=== PATIENT | male | born 1975 | race Caucasian/White ===

== ENCOUNTER 2022-06-01 08:05 | Emergency (ER) | payer OTHER ==
[~2022-06-01] VITALS: Ht 172.7 cm; Wt 86.2 kg
[2022-06-01] MEDS ORDERED: HYDROCODON-ACE1 EA10 PO (09:17)
[2022-06-01] MEDS ORDERED: MEDROL4 MG PO (09:17)
[2022-06-01] MEDS ORDERED: CYCLOBENZAPRINE10 MG PO (09:17)
[2022-06-01] MEDS ORDERED: NAPROSYN500 MG PO (09:17)
== END 2022-06-01 09:35 | disposition home or self-care (01) ==
LOC: ED 08:05
DX: M54.16 Radiculopathy, lumbar region (principal); Z88.0 Allergy status to penicillin; I10 Essential (primary) hypertension
CPT/HCPCS: 72131; 96372; 99283-25; A9270; J1885

== ENCOUNTER 2025-02-05 10:20 | Day surgery (SDC) | payer OTHER ==
[~2025-02-05] VITALS: Ht 172.7 cm; Wt 80.0 kg
[~2025-02-05 10:20] MED LIST: BUPROPION XL300 MG PO; CYCLOBENZAPRINE10 MG PO; GABAPENTIN300 MG PO; HYDROCODON-ACE1 EA10 PO; IBLOOD GLUCOSE TEST STRIP 1 EA TEST VI PRN; LACTATED RINGER'S 1,000 ML IV SCH; LIDOCAINE HCL 1% 5 ML SDV INJ ONE; LIDOCAINE HCL 2% 5 ML SDV ONE; LIPITOR10 MG PO; LOSARTAN-HCTZ1 EAC1 PO; MEDROL4 MG PO; NAPROSYN500 MG PO; NORVASC10 MG PO
[2025-02-05 10:27] VITALS: BP 160/98
[2025-02-05 11:10] LABS: GLOMERULAR FILTRATION RATE,EST 108.0 mL/min (>60); UREA NITROGEN 8.0 mg/dL (7-18)
--- NOTE | 2025-02-05 11:32 | NUR ---
1125 PT UPDATED ABOUT WAIT TIME DUE TO EMERGENCY SURGERY BEING ADDED ON. PT UNDERSTANDING AT THIS TIME. PT HAS SUPPORT PERSON IN ROOM AT BEDSIDE. PT SITTING IN BED WATCHING TV AND HAS CALL LIGHT WITHIN REACH.
[2025-02-05] MEDS ORDERED: GLUCAGON,HUMAN RECOMBINANT 1 MG/ML VIAL ONE (13:45)
--- NOTE | 2025-02-05 14:15 | NUR ---
02/05/25 1415 Amira Valdez 1410-PATIENT ARRIVED TO PACU ON 2L NC RR EVEN 98% PATIENT NONAROUSABLE SR HR 70'S. IVF SALINE LOCKED. ABDOMEN SOFT.
[2025-02-05 14:44] VITALS: BP 133/94
--- NOTE | 2025-02-05 15:07 | OR ---
[facility] [address] [place], [place] [address] Signed DATE OF OPERATION: 02/05/2025 SURGEON: Irene Galvez DO PREOPERATIVE DIAGNOSIS: Colon cancer screening. POSTOPERATIVE DIAGNOSES: 1. Colon cancer screening with colon polyps at 15 and 35 cm. 2. Sigmoid diverticulosis. PROCEDURE PERFORMED: Colonoscopy with cold forceps biopsy of the polyps at 15 and 35 cm. ANESTHESIA: IV sedation. ESTIMATED BLOOD LOSS: None. DRAINS: None. COMPLICATIONS: None. DESCRIPTION OF PROCEDURE: The patient was brought to the GI lab, placed in the supine position. After induction of IV sedation, the patient was then placed in left lateral position, padded to the satisfaction of anesthesia. The Olympus video colonoscope was then introduced into the rectum and while insufflating and under direct visualization, the scope was advanced through the rectosigmoid, sigmoid colon, descending colon, transverse colon, ascending colon and to the cecum. The colon was then insufflated and of mucosal surface was carried out. The ascending colon and cecum had no intrinsic or extrinsic masses. Scope was brought back into the transverse colon. No intrinsic or extrinsic masses were noted. Scope was brought back past the hepatic flexure to the descending colon. No intrinsic or extrinsic masses were appreciated. The scope was then brought back into the sigmoid colon, some profound sigmoid diverticulosis was noted but no evidence of diverticulitis. At 35 cm, a flat broad-based polyp was identified. Multiple biopsies were taken with cold forceps passed off the field. The scope was then brought Electronically Signed By: IRENE GALVEZ DO 02/05/25 1507 PATIENT NAME: CASSIDY BENAVIDES OPERATIVE REPORT DATE OF : 75 REPORT #: [id number] PHYSICIAN: IRENE GALVEZ DO PCP: RUMA BLACKWOOD DO REPORT IS CONFIDENTIAL AND NOT TO BE RELEASED WITHOUT AUTHORIZATION [facility] [address] [place], [place] [address] Signed back to approximately 15 cm and a similar polyp was noted. Multiple biopsies were taken with cold forceps, passed off the field for review. The remainder of the sigmoid and rectosigmoid were unremarkable. Scope was withdrawn. The patient tolerated the procedure well and taken to recovery in satisfactory condition. DO ADRIEL Matson/[facility] /[id number] Copies: ~ Electronically Signed By: IRENE GALVEZ DO 02/05/25 1507 PATIENT NAME: CASSIDY BENAVIDES OPERATIVE REPORT DATE OF : 75 REPORT #: [id number] PHYSICIAN: IRENE GALVEZ DO PCP: RUMA BLACKWOOD DO REPORT IS CONFIDENTIAL AND NOT TO BE RELEASED WITHOUT AUTHORIZATION
--- NOTE | 2025-02-07 22:47 | PATH ---
[facility] [address] [place], [place] [address] Signed SPECIMEN(S): A COLON POLYP AT 35 CM SPECIMEN(S): B COLON POLYP AT 15 CM SPECIMEN SOURCE: A. COLON POLYP AT 35 CM B. COLON POLYP AT 15 CM CLINICAL HISTORY: Pre-op:Colon Screening, postop-polyps x 2, diverticulosis A/B) polyp FINAL PATHOLOGIC DIAGNOSIS: A. Colon polyp at 35 cm: - Hyperplastic polyp. B. Colon polyp at 15 cm: - Hyperplastic polyp. JVR MICROSCOPIC EXAMINATION: Histologic sections of all submitted blocks are examined by light microscopy. These findings, together with the gross examination, support the pathologic diagnosis. GROSS DESCRIPTION: A. The specimen, labeled and designated "Kellas, colon polyp at 35 cm," is received in formalin and consists of one cameron soft tissue fragment, 0.3 cm. Entirely submitted in (A1). B. The specimen, labeled and designated "Kellas, colon polyp at 15 cm," is received in formalin and consists of one cameron soft tissue fragment, 0.3 cm. Entirely submitted in (B1). AB (under the direct supervision of a pathologist) The Gross Description was prepared using a voice recognition system. The report was reviewed for accuracy; however, sound-alike word errors, addition and/or deletions may occur. If there is any question about this report, please contact Client Services. ADDITIONAL NOTES: Immunohistochemical and/or in situ hybridization studies if performed in this case included appropriate positive controls that reacted as expected. This test was developed and its performance characteristics determined by [facility]. It has not been cleared or PATIENT NAME: CASSIDY BENAVIDES PATHOLOGY DATE OF : 75 REPORT #: [id number] PHYSICIAN: MARLON PENA PCP: RUMA BLACKWOOD DO REPORT IS CONFIDENTIAL AND NOT TO BE RELEASED WITHOUT AUTHORIZATION [facility] [address] [facility] [place] [address] Signed approved by the U.S. Food and Drug Administration. The FDA has determined that such clearance or approval is not necessary. This test is used for clinical purposes. It should not be regarded as investigational or for research. [facility] is certified under the Clinical Laboratory Improvement Amendments of 1988 (CLIA) as qualified to perform high complexity clinical laboratory testing. PERFORMING LABORATORY: Technical component was performed by [facility], [address] [place] [id number] (CLIA# [id number]). Professional interpretation was performed by [facility] [place] - [address] [place] [address] (CLIA#: [id number]). Diagnostician: Low Ferreira MD Pathologist Electronically Signed 02/07/2025 Copies: ~ PATIENT NAME: CASSIDY BENAVIDES PATHOLOGY DATE OF : 75 REPORT #: [id number] PHYSICIAN: MARLON PATHOLOGY PCP: RUMA BLACKWOOD DO REPORT IS CONFIDENTIAL AND NOT TO BE RELEASED WITHOUT AUTHORIZATION
== END 2025-02-05 14:50 ==
LOC: DS 10:20
PROVIDERS: ATTEND Surgery
PROC: 0DBN8ZX Excision of Sigmoid Colon, Via Natural or Artificial Opening Endoscopic, Diagnostic (ICD-10-PCS; principal; 2025-02-05 11:30)
DX: Z12.11 Encounter for screening for malignant neoplasm of colon (principal); K63.5 Polyp of colon; K57.30 Diverticulosis of large intestine without perforation or abscess without bleeding; I10 Essential (primary) hypertension; E78.5 Hyperlipidemia, unspecified; F32.A Depression, unspecified; Z79.899 Other long term (current) drug therapy; Z88.0 Allergy status to penicillin
CPT/HCPCS: 00812; 36415; 80048; J1610; J2003; J2704; J7121